=== PATIENT | female | born 1965 | race Caucasian/White ===

== ENCOUNTER 2017-04-25 14:13 | Emergency (ER) | payer SELFPAY ==
[2017-04-25 15:18] VITALS: BP 141/81
--- NOTE | 2017-04-25 19:12 | Emergency Department Report ---
HPI - General Chief Complaint: Allergic Reaction Time Seen by Provider: 04/25/17 19:10 - HPI HPI: Report that she has been stung by a bee several times today. She said this occurred this morning and she came by ambulance. She said they gave her Benadryl and started IV fluid. She said that she has bee sting to her flank and the back of her neck and she is itching. Denies any nausea or vomiting. Denies any difficulty breathing, swollen tongue, cough or wheezing. ED Past Medical Hx - Past Medical History Previous Medical History?: No - Surgical History Past Surgical History?: No - Family History Family history: no significant - Social History Smoking Status: Current Some Day Smoker Substance Use Type: Alcohol, Marijuana - Medications Home Medications: Home Medications Medication Instructions Recorded Confirmed Last Taken Type Cetirizine HCl [ZyrTEC] 10 mg PO QAM #10 capsule 04/25/17 Unknown Rx methylPREDNISolone [Medrol] 4 mg PO QAM #1 tab.ds.pk 04/25/17 Unknown Rx ED Review of Systems ROS: Stated complaint: STUNG BY BEES Other details as noted in HPI Comment: All other systems reviewed and negative Constitutional: denies: chills, fever ENT: denies: throat pain, congestion Respiratory: no symptoms reported Cardiovascular: denies: chest pain, palpitations, edema, syncope Gastrointestinal: denies: abdominal pain, nausea, vomiting Musculoskeletal: denies: back pain, joint swelling, arthralgia, myalgia Skin: rash, other (Beesting neck and both flank) Neurological: denies: headache, weakness, numbness, paresthesias, confusion, abnormal gait, vertigo Physical Exam - Physical Exam Vital Signs: Vital Signs 04/25/17 15:14 Temperature 97.9 F Pulse Rate 59 L Respiratory 20 Rate Blood Pressure 141/81 O2 Sat by Pulse 100 Oximetry General: This is a 52-year-old female who came by ambulance reporting that she had bee sting this morning. She is well-developed well-nourished in no acute distress Physical Exam: Head: Normocephalic, atraumatic. No abrasions, laceration or contusion Neck: Supple, no adenopathy. Full range of motion. No C-spine tenderness. No muscular tenderness Mouth: Moist, no pharyngeal exudate or erythema. Uvula is midline and oral airways patent. Tongue is normal. No trismus. No peritonsillar abscess. Ear: Bilateral TMs pearly silveira, bilateral EAC without any redness swelling or drainage. Bilateral tract is nontender to palpate. Abdomen: Nontender the palpation in all quadrants, no guarding or rebound tenderness. No CVA tenderness and normal bowel sounds in all quadrants. Extremity: No clubbing, cyanosis or edema. +2 pulses in all extremities. No neurovascular compromise. Capillary refill is less than 3 seconds. Good color , sensation, movement and temperature in all extremities. Skin: Andrew and intact, no rash or lesions. No stinger noted to areas on flank , lower back or back of neck. Small erythemic area noted to lower back and left flank area. PSYCH: Normal mood and behavior. Neurological: GCS of 15, speech is clear and fluid, alert and oriented 3. Normal gait, negative Romberg and negative pronator drift. No motor or sensory deficit. Back: No vertebral tenderness, no paraspinal tenderness, no saddle anesthesia,. Patient able to relate without any difficulties. ED Course Vital Signs 04/25/17 15:14 Temperature 97.9 F Pulse Rate 59 L Respiratory 20 Rate Blood Pressure 141/81 O2 Sat by Pulse 100 Oximetry - Reevaluation(s) Reevaluation #1: 04/25/17 19:41 Patient given Benadryl in ambulance and site Medrol 125 mg IV along with Pepcid 20 mg by mouth in ER. She has already subsided past administration of Benadryl by EMS. 04/25/17 19:42 Reevaluation #2: 04/25/17 20:38 observed in emergency room without any further allergic reaction symptoms ED Medical Decision Making - Medical Decision Making ED course: The status post bee sting and brought to the emergency room by EMS. He got stung this morning and she came to the emergency room at 3 PM. She received Benadryl IM injection in EMS transport. She refused slight Medrol and Pepcid IV. She was given Deltasone 60 mg by mouth and Pepcid 40 mg by mouth in emergency room with observation. No further exacerbation of allergic reaction. She discharged home with Medrol Dosepak and Zyrtec and told to follow-up with her primary care physician and/or to return to emergency room if symptoms return or worsens. Critical care attestation.: If time is entered above; I have spent that time in minutes in the direct care of this critically ill patient, excluding procedure time. ED Disposition Clinical Impression: Bee sting allergy Minor allergic reaction Qualifiers: Encounter type: initial encounter Qualified Code(s): T78.40XA - Allergy, unspecified, initial encounter Disposition: TO HOME OR SELFCARE Is pt being admited?: No Does the pt Need Aspirin: No Condition: Stable Instructions: Insect Bite or Sting (ED), Allergies (ED) Additional Instructions: Please take Medrol Dosepak If you're allergic reaction symptoms come back or progressive please return to the emergency room [place] Her tach will help clear itching If you develop swollen tongue, hoarse voice, itch into throat, wheezing, stridor and increase in rash please return to the emergency room otherwise follow-up with your primary care physician in 24 hours if you do not have a primary care physician follow-up at [facility]. Prescriptions: Cetirizine HCl [ZyrTEC] 10 mg PO QAM #10 capsule methylPREDNISolone [Medrol] 4 mg PO QAM #1 tab.ds.pk Referrals: [facility] [Outside] - 04/26/17 Forms: Work/School Release Form(ED)
[2017-04-25] MEDS ORDERED: PEPCID IV ONE (19:42)
[2017-04-25] MEDS ORDERED: DELTASONE PO ONE (19:53)
[2017-04-25] MEDS ORDERED: PEPCID PO ONE (19:53)
== END 2017-04-25 20:54 | disposition home or self-care (01) ==
LOC: ED 14:13
DX: T63.441A Toxic effect of venom of bees, accidental (unintentional), initial encounter (principal); T78.40XA Allergy, unspecified, initial encounter; F17.200 Nicotine dependence, unspecified, uncomplicated; F12.10 Cannabis abuse, uncomplicated; W57.XXXA Bitten or stung by nonvenomous insect and other nonvenomous arthropods, initial encounter; Y93.9 Activity, unspecified; Y92.9 Unspecified place or not applicable; Y99.9 Unspecified external cause status
CPT/HCPCS: 99283; J7512; J2930

== ENCOUNTER 2017-11-06 09:30 | Emergency (ER) | payer SELFPAY ==
[2017-11-06] MEDS ORDERED: TORADOL IM ONE (14:08)
[2017-11-06] MEDS ORDERED: FLEXERIL PO ONE (14:08)
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
[2017-11-06] MEDS ORDERED: TORADOL ONE (15:13)
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
[2017-11-06 17:12] VITALS: BP 120/68
== END 2017-11-06 17:10 | disposition home or self-care (01) ==
LOC: ED 09:30
DX: S82.435A Nondisplaced oblique fracture of shaft of left fibula, initial encounter for closed fracture (principal); V18.2XXA Unspecified pedal cyclist injured in noncollision transport accident in nontraffic accident, initial encounter; Y93.89 Activity, other specified; Y92.89 Other specified places as the place of occurrence of the external cause; Y99.8 Other external cause status
CPT/HCPCS: 99283; J1885